=== PATIENT | female | born 1955 | race Caucasian/White ===

== ENCOUNTER → 2016-11-03 | Outpatient (REF) | LOC: WSOH 17:30 | DX: Z02.89 Encounter for other administrative examinations (principal) ==

== ENCOUNTER → 2017-02-08 | Outpatient (CLI) | payer OTHER | LOC: MC.RAD 07:55 | DX: Z12.31 Encounter for screening mammogram for malignant neoplasm of breast (principal) ==

== ENCOUNTER → 2018-03-11 | Outpatient (CLI) | payer OTHER | LOC: MC.RAD 12:14 | DX: Z12.31 Encounter for screening mammogram for malignant neoplasm of breast (principal) ==

== ENCOUNTER 2018-03-18 07:49 | Day surgery (SDC) | payer OTHER ==
[2018-03-18] VITALS (7 sets, daily range): BP systolic 94–115; BP diastolic 57–71; PULSE 57–71; TEMP 97.2–98.5
[~2018-03-18] VITALS: Ht 162.6 cm; Wt 58.3 kg
[2018-03-18] MEDS ORDERED: TIROSINT75 MC1 PO (08:29)
[2018-03-18] MEDS ORDERED: CALCIUM CARBON650 M2 PO (08:31)
[2018-03-18] MEDS ORDERED: MASON NATURAL2000 IU PO (08:32)
[2018-03-18] MEDS ORDERED: FISH OIL 500 M1 EAC1 PO (08:33)
[2018-03-18] MEDS ORDERED: ASPIRIN 81M81 MG/TA2 PO (08:33)
--- NOTE | 2018-03-18 08:34 | NUR ---
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
--- NOTE | 2018-03-18 10:10 | NUR ---
Pt to [facility] via cart from ENDO. Pt drowsy, but awake. Pt ambulates to recliner with stand by assistance. Warm blanket provided. No visitors/family here with pt at this time. Coffee provided per pt request. Will continue to monitor. Call light within reach
--- NOTE | 2018-03-18 10:25 | NUR ---
Pt sleeping. Respirations even and unlabored. Call light within reach.
--- NOTE | 2018-03-18 10:40 | NUR ---
Pt continues to rest. [place] and coffee given per pt request. Will continue to monitor. Call light within reach.
--- NOTE | 2018-03-18 10:55 | NUR ---
Pt continues to rest. Denies needs. Call light within reach.
--- NOTE | 2018-03-18 11:25 | NUR ---
Pt continues to rest. Denies needs. Call light within reach.
--- NOTE | 2018-03-18 11:55 | NUR ---
Discharge instructions reviewed with pt by Sondra MILLER. Pt voices understanding. IV site discontinued with all parts intact. Pt up to dress. Call light within reach.
--- NOTE | 2018-03-18 12:00 | NUR ---
Pt escorted to private car via wheel chair. Pt accompanied home by her .
== END 2018-03-18 12:00 | disposition home or self-care (01) ==
LOC: SDCO 07:49
DX: Z12.11 Encounter for screening for malignant neoplasm of colon (principal); K21.9 Gastro-esophageal reflux disease without esophagitis; E03.9 Hypothyroidism, unspecified; M85.80 Other specified disorders of bone density and structure, unspecified site; Z79.82 Long term (current) use of aspirin; Z80.0 Family history of malignant neoplasm of digestive organs
CPT/HCPCS: OP; J2250; J3010; J7030

== ENCOUNTER → 2019-04-09 | Outpatient (CLI) | payer OTHER ==
[~2019-04-09] MED LIST: ASPIRIN 81M81 MG/TA2 PO; CALCIUM CARBON650 M2 PO; FISH OIL 500 M1 EAC1 PO; MASON NATURAL2000 IU PO; TIROSINT75 MC1 PO
== END ==
LOC: MC.RAD 10:39
DX: Z12.31 Encounter for screening mammogram for malignant neoplasm of breast (principal)

== ENCOUNTER → 2020-04-27 | Outpatient (CLI) | payer OTHER | LOC: MC.RAD | DX: Z12.31 Encounter for screening mammogram for malignant neoplasm of breast (principal) ==

== ENCOUNTER → 2021-04-28 | Outpatient (CLI) | payer OTHER | LOC: MC.RAD 14:14 | DX: Z12.31 Encounter for screening mammogram for malignant neoplasm of breast (principal) ==

== ENCOUNTER → 2022-05-25 | Outpatient (CLI) | payer MEDICARE, OTHER | LOC: MC.RAD 05-09 08:30 | DX: Z12.31 Encounter for screening mammogram for malignant neoplasm of breast (principal) ==